=== PATIENT | male | born 1995 | race Asian ===

== ENCOUNTER 2018-07-30 11:04 | Emergency (ER) | payer MEDICAID ==
[~2018-07-30] VITALS: Ht 188 cm; Wt 100.0 kg
[2018-07-30 12:38] VITALS: BP 128/77
== END 2018-07-30 12:40 | disposition home or self-care (01) ==
LOC: EMS 11:06
DX: S61.411D Laceration without foreign body of right hand, subsequent encounter (principal); X58.XXXD Exposure to other specified factors, subsequent encounter

== ENCOUNTER 2024-01-25 17:28 | Emergency (ER) | payer MEDICAID, OTHER ==
[~2024-01-25] VITALS: Ht 188 cm; Wt 104.5 kg
[2024-01-25 17:32] VITALS: TEMP 98.2
[2024-01-25] MEDS ORDERED: ALPR-707 PO (17:33)
[2024-01-25 19:28] LABS: APPEARANCE,URINE CLEAR (CLEAR); BILIRUBIN,URINE NEGATIVE (NEGATIVE); COLOR,URINE COLORLESS (YELLOW); GLUCOSE, URINE (UA) NEGATIVE (NEGATIVE); KETONES,URINE NEGATIVE (NEGATIVE); LEUKOCYTE ESTERASE ,URINE NEGATIVE (NEGATIVE); NITRATE,URINE NEGATIVE (NEGATIVE); OCCULT BLOOD,URINE NEGATIVE (NEGATIVE); PROTEIN,URINE NEGATIVE (NEGATIVE); SPECIFIC GRAVITIY, URINE 1.009 (1.003-1.030); UROBILINOGEN,URINE <=1.0 mg/dL (<=1.0)
[2024-01-25 19:35] LABS: ALCOHOL, URINE DRUG SCREEN NEGATIVE (NEGATIVE); AMPHET/METH SCREEN,URINE NEGATIVE (NEGATIVE); BARBITURATE SCREEN, URINE NEGATIVE (NEGATIVE); BENZODIAZEPINES SCREEN,URINE POSITIVE (NEGATIVE); CANNABINOID SCREEN,URINE NEGATIVE (NEGATIVE); COCAINE SCREEN,URINE NEGATIVE (NEGATIVE); METHADONE SCREEN, URINE NEGATIVE (NEGATIVE); OPIATE SCREEN,URINE NEGATIVE (NEGATIVE); PHENCYCLIDINE SCREEN,URINE NEGATIVE (NEGATIVE)
[2024-01-25 19:51] LABS: BACTERIA,URINE None Seen /HPF (None Seen); RBC,URINE None Seen /HPF (0-2); WBC,URINE None Seen /HPF (0-5)
[2024-01-25] MEDS: ClonazePAM 1 MG TABLET PO ONE (20:03)
[2024-01-25] MEDS ORDERED: CLON-592 PO (20:03)
[2024-01-25 20:15] VITALS: BP 149/79; PULSE 65; RESP 18
== END 2024-01-25 20:32 | disposition home or self-care (01) ==
LOC: EMS 17:30
DX: F41.9 Anxiety disorder, unspecified (principal); F15.23 Other stimulant dependence with withdrawal; F32.A Depression, unspecified; Z79.899 Other long term (current) drug therapy
CPT/HCPCS: 80307; 81001; 99283

== ENCOUNTER 2024-11-15 11:39 | Emergency (ER) | payer MEDICAID ==
[~2024-11-15] VITALS: Ht 188 cm; Wt 104.5 kg
[~2024-11-15 11:39] MED LIST: ALPR-707 PO; CLON-592 PO
[2024-11-15 11:42] VITALS: TEMP 97.9
[2024-11-15 12:15] VITALS: BP 144/86; PULSE 89; RESP 20; O2SAT 98
[2024-11-15] MEDS ORDERED: HYDR50CA7 PO (13:38)
[2024-11-15] MEDS ORDERED: CHLO25CA6 PO (13:38)
[2024-11-15] MEDS: ChlordiazePOXIDE HCL 25 MG CAPSULE PO ONE (13:41)
== END 2024-11-15 13:46 | disposition home or self-care (01) ==
LOC: EMS 11:43
DX: F41.9 Anxiety disorder, unspecified (principal); F10.20 Alcohol dependence, uncomplicated; F32.A Depression, unspecified; Y90.8 Blood alcohol level of 240 mg/100 ml or more
CPT/HCPCS: 99283